=== PATIENT | male | born 1960 | race Caucasian/White ===

== ENCOUNTER 2017-02-08 10:31 | Day surgery (SDCO) | payer OTHER ==
[~2017-02-08] VITALS: Ht 185.4 cm; Wt 76.7 kg
[2017-02-08 11:19] LABS: BASOPHIL 0.2 % (0-2); EOSINOPHIL 1.3 % (0-5); HCT 41.1 % (42.0-52.0); HGB 14.1 g/dl (13.2-18.0); LYMPHOCYTE 13.4 % (15-48); MCH 31.5 pg (25.0-31.0); MCHC 34.3 g/dL (32.0-36.0); MCV 91.7 fL (78.0-100.0); MONOCYTE 8.7 % (0-12); MPV 9.2 fL (6.0-9.5); NEUTROPHIL 76.4 % (41-80); PLT 394 K/uL (150-400); RBC 4.48 M/uL (4.70-6.00); RDW 13.6 % (11.5-14.0); WBC 11.5 K/uL (4.0-10.5)
[2017-02-08 11:24] LABS: INR 1.02 (0.9-1.2); PROTHROMBIN TIME 12.5 SECONDS (11.4-13.2); PTT 27.2 SECONDS (24.3-32.1)
[2017-02-08 11:31] LABS: ALBUMIN 4.1 g/dL (3.5-5.0); BILIRUBIN - TOTAL 0.5 mg/dL (0.1-1.0); CREATININE 0.9 mg/dL (0.7-1.2); GLOBULIN (CALCULATION) 2.6 g/dL (2.2-4.2); POTASSIUM 4.3 mmol/L (3.5-5.1); TOTAL PROTEIN 6.7 g/dL (6.4-8.3)
[2017-02-09 05:45] LABS: HCT 37.9 % (42.0-52.0); HGB 12.9 g/dl (13.2-18.0); MCH 31.3 pg (25.0-31.0); MPV 9.4 fL (6.0-9.5); RBC 4.12 M/uL (4.70-6.00); RDW 13.5 % (11.5-14.0); WBC 8.8 K/uL (4.0-10.5)
[2017-02-09 06:15] LABS: CREATININE 0.9 mg/dL (0.7-1.2); MAGNESIUM 2.04 mg/dL (1.40-2.10); PHOSPHORUS 3.6 mg/dL (2.7-4.5); POTASSIUM 4.5 mmol/L (3.5-5.1)
== END 2017-02-09 14:55 | disposition home or self-care (01) ==
LOC: FER 10:31 → FTCU 12:01
PROVIDERS: Emergency Medicine; Internal Medicine; ADMIT Internal Medicine
DX: D62 Acute posthemorrhagic anemia (principal); K92.2 Gastrointestinal hemorrhage, unspecified; I25.10 Atherosclerotic heart disease of native coronary artery without angina pectoris; I25.2 Old myocardial infarction; E78.5 Hyperlipidemia, unspecified; Z87.891 Personal history of nicotine dependence; Z80.8 Family history of malignant neoplasm of other organs or systems; Z95.5 Presence of coronary angioplasty implant and graft; Z79.82 Long term (current) use of aspirin; Z79.02 Long term (current) use of antithrombotics/antiplatelets; Z79.899 Other long term (current) drug therapy; Z98.890 Other specified postprocedural states
CPT/HCPCS: 36415; 80048; 80053; 83735; 84100; 84484; 85025; 85610; 85730; 93005; C9113; G0378